=== PATIENT | female | born 1960 | race Caucasian/White ===

== ENCOUNTER 2019-05-02 17:32 | Emergency (ER) | payer BC ==
[~2019-05-02] VITALS: Ht 170.2 cm; Wt 85.0 kg
[~2019-05-02 17:32] MED LIST: CELE-193 PO; DULO60CA45 PO; ESTR-8 PO; HYDR-4353 PO
[2019-05-02 18:15] LABS: BASOPHILS % (AUTO) 0.4 % (0-1); EOSINOPHILS % (AUTO) 0.7 % (0-6); HEMATOCRIT 32.2 % (35.0-45.0); HEMOGLOBIN 11.1 g/dl (12.0-16.0); LYMPHOCYTES # (AUTO) 0.9 X10'3 (1.1-4.8); LYMPHOCYTES % (AUTO) 32.3 % (21-51); MEAN CORPUSCULAR HEMOGLOBIN 32.6 PG (27.0-31.0); MEAN CORPUSCULAR HGB CONC 34.6 g/dL (33.0-36.5); MEAN CORPUSCULAR VOLUME 94.1 FL (78-98); MEAN PLATELET VOLUME 7.6 FL (7.4-10.4); MONOCYTES # (AUTO) 0.2 X10'3 (0-0.9); MONOCYTES % (AUTO) 6.1 % (2-12); NEUTROPHILS # (AUTO) 1.7 X10'3 (1.8-7.7); NEUTROPHILS % (AUTO) 60.5 % (42-75); PLATELET COUNT 200 X10'3 (140-440); RED BLOOD COUNT 3.42 X10'6 (4.20-5.60); RED CELL DISTRIBUTION WIDTH 13.7 % (11.5-14.5); WHITE BLOOD COUNT 2.8 X10'3 (4.5-11.0)
--- NOTE | 2019-05-02 18:19 | NUR ---
PT REPORTS LAST CANCER TREATMENT WAS LAST FRIDAY
[2019-05-02 18:24] LABS: CLARITY,URINE SLIGHTLY CLOUDY (Clear); COLOR,URINE YELLOW (Yellow); GLUCOSE, URINE NEGATIVE (Neg); KETONES,URINE TRACE mg/dl (Neg); LEUKOCYTE ESTERASE ,URINE SMALL (Neg); NITRITES, URINE NEGATIVE (Neg); OCCULT BLOOD,URINE NEGATIVE (Neg); PROTEIN,URINE NEGATIVE (Neg); UROBILINOGEN,URINE 0.2 E.U/dL (0.2-1.0)
[2019-05-02 18:24] LABS: ALANINE AMINOTRANSFERASE 104 U/L (12-78); ALBUMIN 3.6 G/DL (3.4-5.0); ALKALINE PHOSPHATASE 143 IU/L (46-116); ANION GAP 10 (8-16); ASPARTATE AMINO TRANSFERASE 181 U/L (10-37); BLOOD UREA NITROGEN 23 MG/DL (7-18); BUN/CREATININE RATIO 12.4 (6.6-38.0); CALCIUM 8.7 MG/DL (8.5-10.1); CHLORIDE 104 MMOL/L (99-107); CREATININE 1.85 MG/DL (0.40-0.90); GLUCOSE 104 MG/DL (70-104); LIPASE 83 U/L (73-393); POTASSIUM 4.6 MMOL/L (3.5-5.1); SODIUM 136 MMOL/L (135-145); TOTAL CARBON DIOXIDE 22.4 MMOL/L (24-32); TOTAL PROTEIN 7.2 G/DL (6.4-8.2); eGFR 28 ML/MIN
[2019-05-02 18:26] LABS: UA COLLECTION TYPE CLN CATCH MIDSTREAM
--- NOTE | 2019-05-02 18:28 | NUR ---
PT HAS KNOWN SUPERFICIAL BLOOD CLOT ON UPPER RIGHT CHEST. PT CURRENTLY TAKES ELIQUIS DUE TO KNOWN CLOT.
[2019-05-02 18:43] LABS: BACTERIA,URINE 2+ /HPF (Neg); MUCUS STRANDS FEW /LPF (Neg); RBC,URINE NONE SEEN /HPF (0-2); SQUAMOUS EPITHELIAL CELL,UR MANY /LPF (FEW)
[2019-05-02 19:00] LABS: TOTAL CELLS COUNTED 100
[2019-05-02 19:01] LABS: PLATELET ESTIMATE NORMAL
[2019-05-02] MEDS ORDERED: fentaNYL/PF 50MCG/1 ML 2ML syringe IV ONE ×4 (19:30→22:35)
[2019-05-02] MEDS ORDERED: ondansetron/PF 4mg/2ml inj IV ONE ×2 (19:30→21:20)
[2019-05-02] MEDS ORDERED: piperacillin/tazo 3.375gm/50ml 50 ML IV ONE (21:20)
--- NOTE | 2019-05-03 00:50 | NUR ---
MD BEY PT SELF ADMINISTRATION OF AMBIEN 10 MG AND PT TRIAL MEDICATION: [facility] [phone] Study Drug [id number] 100 mg FOR IRB [id number] Tona Quesada MD
[2019-05-03 01:33] VITALS: BP 128/60
--- NOTE | 2019-05-03 05:12 | NUR ---
CALLED REPORT TO MARIBEL JORGE AT [facility] EMERGENCY ROOM. NO FUTHER QUESTIONS OR CONCERNS AT THIS TIME PER RN. ACCEPTING MD IS DR KUHN. CURRENTLY WAITING FOR TRANSPORTATION.
--- NOTE | 2019-05-03 06:29 | NUR ---
PT SLEEPING IN POC WITHOUT COMFORT, REMAINS WAITING TRANSPORT [facility].
[2019-05-03] MEDS ORDERED: ondansetron/PF 4mg/2ml inj IV ONE (09:40)
[2019-05-03] MEDS ORDERED: morphine 4 MG/ML inj SYRINge IV ONE (09:40)
--- NOTE | 2019-05-03 09:56 | NUR ---
PAIN AND NAUSEA MEDS REQUESTED AND GIVEN. RE[facility] CREW HERE TO TX PT TO [facility]. REPORT TO PILY, REACH 5.
== END 2019-05-14 10:42 | disposition short-term general hospital (02) ==
LOC: ER 17:33
DX: C56.9 Malignant neoplasm of unspecified ovary (principal); K81.0 Acute cholecystitis; R74.0 Nonspecific elevation of levels of transaminase and lactic acid dehydrogenase [LDH]; R11.2 Nausea with vomiting, unspecified; Z90.710 Acquired absence of both cervix and uterus; Z98.890 Other specified postprocedural states; Z79.2 Long term (current) use of antibiotics; Z79.899 Other long term (current) drug therapy
CPT/HCPCS: 36415; 74176; 80053; 81001; 83605; 83690; 85025; 93005; 96365; 96366; 96375; 96376; 99285; J2270; J2405; J2543; J3010

== ENCOUNTER 2019-09-07 13:08 | Emergency (ER) | payer MEDICARE, BC ==
[~2019-09-07] VITALS: Ht 170.2 cm; Wt 83.7 kg
[2019-09-07 13:46] LABS: BASOPHILS % (AUTO) 0.9 % (0-1); EOSINOPHILS # (AUTO) 0.1 X10'3 (0-0.9); EOSINOPHILS % (AUTO) 1.6 % (0-6); HEMATOCRIT 29.6 % (35.0-45.0); HEMOGLOBIN 9.8 g/dl (12.0-16.0); LYMPHOCYTES % (AUTO) 30.7 % (21-51); MEAN CORPUSCULAR HEMOGLOBIN 29.6 PG (27.0-31.0); MEAN CORPUSCULAR HGB CONC 33.2 g/dL (33.0-36.5); MEAN CORPUSCULAR VOLUME 89.2 FL (78-98); MEAN PLATELET VOLUME 7.5 FL (7.4-10.4); MONOCYTES # (AUTO) 0.3 X10'3 (0-0.9); NEUTROPHILS # (AUTO) 1.8 X10'3 (1.8-7.7); NEUTROPHILS % (AUTO) 57.8 % (42-75); PLATELET COUNT 210 X10'3 (140-440); RED BLOOD COUNT 3.32 X10'6 (4.20-5.60); RED CELL DISTRIBUTION WIDTH 18.2 % (11.5-14.5); WHITE BLOOD COUNT 3.2 X10'3 (4.5-11.0)
[2019-09-07 14:10] LABS: ALANINE AMINOTRANSFERASE 15 U/L (12-78); ALBUMIN 2.9 G/DL (3.4-5.0); ALBUMIN/GLOBULIN RATIO 0.8 (1.1-1.5); ALKALINE PHOSPHATASE 133 IU/L (46-116); AMYLASE 41 U/L (25-115); ANION GAP 8 (8-16); ASPARTATE AMINO TRANSFERASE 19 U/L (10-37); BILIRUBIN,TOTAL 0.4 MG/DL (0.1-1.0); BLOOD UREA NITROGEN 22 MG/DL (7-18); BUN/CREATININE RATIO 12.9 (6.6-38.0); CALCIUM 8.6 MG/DL (8.5-10.1); CHLORIDE 108 MMOL/L (99-107); GLUCOSE 155 MG/DL (70-104); LIPASE 74 U/L (73-393); POTASSIUM 4.3 MMOL/L (3.5-5.1); SODIUM 139 MMOL/L (135-145); TOTAL CARBON DIOXIDE 23.5 MMOL/L (24-32); TOTAL PROTEIN 6.4 G/DL (6.4-8.2); eGFR 31 ML/MIN
[2019-09-07] MEDS ORDERED: ondansetron 4mg rapidly disintigrating tab PO ONE (15:10)
[2019-09-07] MEDS ORDERED: morphine 4 MG/ML inj SYRINge IM ONE ×2 (15:10→16:10)
[2019-09-07 16:11] LABS: CLARITY,URINE SLIGHTLY CLOUDY (Clear); COLOR,URINE STRAW (Yellow); GLUCOSE, URINE NEGATIVE (Neg); KETONES,URINE NEGATIVE (Neg); LEUKOCYTE ESTERASE ,URINE SMALL (Neg); NITRITES, URINE NEGATIVE (Neg); OCCULT BLOOD,URINE LARGE (Neg); PH,URINE 5.5 (4.8-8.0); PROTEIN,URINE NEGATIVE (Neg); UROBILINOGEN,URINE 0.2 E.U/dL (0.2-1.0)
[2019-09-07 16:21] LABS: UA COLLECTION TYPE CLN CATCH MIDSTREAM
[2019-09-07 16:23] LABS: RBC,URINE 20-50 /HPF (0-2)
[2019-09-07 16:24] LABS: BACTERIA,URINE FEW /HPF (Neg); SQUAMOUS EPITHELIAL CELL,UR FEW /LPF (FEW); WBC,URINE 0-4 /HPF (0-4)
[2019-09-07] MEDS ORDERED: sucralfate 1gm/10ml UD suspension PO STA (17:19)
[2019-09-07] MEDS ORDERED: morphine 4 MG/ML inj SYRINge IV PRN (17:20)
[2019-09-07] MEDS ORDERED: LIDOcaine Viscous 15ml cup MM ONE (17:20)
[2019-09-07] MEDS ORDERED: ondansetron/PF 4mg/2ml inj IV ONE (17:20)
[2019-09-07] MEDS ORDERED: mag hydrox/Alum hydrox/simeth 30ml oral suspension PO ONE (17:20)
[2019-09-07] MEDS ORDERED: oxyCODONE SR 10mg (sust. release) tab PO ONE (18:00)
[2019-09-07] MEDS ORDERED: OXYC10TA47 PO (18:05)
[2019-09-07 18:26] VITALS: BP 143/62
== END 2019-09-07 18:28 | disposition home or self-care (01) ==
LOC: ER 13:08
DX: K80.20 Calculus of gallbladder without cholecystitis without obstruction (principal); C56.9 Malignant neoplasm of unspecified ovary; Z90.710 Acquired absence of both cervix and uterus; Z98.890 Other specified postprocedural states; Z79.2 Long term (current) use of antibiotics; Z79.899 Other long term (current) drug therapy
CPT/HCPCS: 36415; 76700; 80053; 81001; 82150; 83690; 85025; 87088; 96374; 96375; 99285; J2270; J2405

== ENCOUNTER 2020-04-12 07:43 | Emergency (ER) | payer BC, MEDICARE ==
[~2020-04-12] VITALS: Ht 170.2 cm; Wt 81.8 kg
[2020-04-12 08:57] LABS: BASOPHILS % (AUTO) 0.5 % (0-1); EOSINOPHILS # (AUTO) 0.1 X10'3 (0-0.9); EOSINOPHILS % (AUTO) 2.2 % (0-6); HEMATOCRIT 31.5 % (35.0-45.0); HEMOGLOBIN 10.4 g/dl (12.0-16.0); LYMPHOCYTES # (AUTO) 0.7 X10'3 (1.1-4.8); LYMPHOCYTES % (AUTO) 16.8 % (21-51); MEAN CORPUSCULAR HEMOGLOBIN 30.4 PG (27.0-31.0); MEAN CORPUSCULAR VOLUME 92.2 FL (78-98); MEAN PLATELET VOLUME 7.7 FL (7.4-10.4); MONOCYTES # (AUTO) 0.5 X10'3 (0-0.9); MONOCYTES % (AUTO) 13.1 % (2-12); NEUTROPHILS # (AUTO) 2.7 X10'3 (1.8-7.7); NEUTROPHILS % (AUTO) 67.4 % (42-75); PLATELET COUNT 275 X10'3 (140-440); RED BLOOD COUNT 3.42 X10'6 (4.20-5.60); WHITE BLOOD COUNT 4.1 X10'3 (4.5-11.0)
[2020-04-12 09:12] LABS: ALANINE AMINOTRANSFERASE 29 U/L (12-78); ALBUMIN 3.1 G/DL (3.4-5.0); ALBUMIN/GLOBULIN RATIO 0.9 (1.1-1.5); ALKALINE PHOSPHATASE 72 IU/L (46-116); ANION GAP 9 (8-16); ASPARTATE AMINO TRANSFERASE 27 U/L (10-37); BILIRUBIN,TOTAL 0.6 MG/DL (0.1-1.0); BLOOD UREA NITROGEN 17 MG/DL (7-18); BUN/CREATININE RATIO 15.5 (6.6-38.0); CALCIUM 8.8 MG/DL (8.5-10.1); CHLORIDE 111 MMOL/L (99-107); GLUCOSE 89 MG/DL (70-104); POTASSIUM 5.2 MMOL/L (3.5-5.1); SODIUM 142 MMOL/L (135-145); TOTAL CARBON DIOXIDE 22.5 MMOL/L (24-32); TOTAL PROTEIN 6.4 G/DL (6.4-8.2); eGFR 51 ML/MIN
[2020-04-12 09:34] VITALS: BP 171/73
[2020-04-12 09:35] LABS: ANISOCYTOSIS 3+
[2020-04-12 09:36] LABS: POLYCHROMASIA FEW; SCHISTOCYTES FEW
[2020-04-12 09:37] LABS: ELLIPTOCYTES FEW
[2020-04-12 09:38] LABS: PLATELET ESTIMATE NORMAL
[2020-04-12] MEDS ORDERED: FURO40TA4 PO (10:59)
== END 2020-04-12 11:12 | disposition home or self-care (01) ==
LOC: ER 07:44
DX: C56.9 Malignant neoplasm of unspecified ovary (principal); R06.02 Shortness of breath; R05 Cough; I12.9 Hypertensive chronic kidney disease with stage 1 through stage 4 chronic kidney disease, or unspecified chronic kidney disease; N18.9 Chronic kidney disease, unspecified; Z85.43 Personal history of malignant neoplasm of ovary; Z90.710 Acquired absence of both cervix and uterus; Z98.890 Other specified postprocedural states; Z79.899 Other long term (current) drug therapy
CPT/HCPCS: 36415; 71045; 80053; 83880; 85008; 85025; 93005; 93971; 99285

== ENCOUNTER 2022-10-19 13:26 | Emergency (ER) | payer BC, MEDICARE ==
[~2022-10-19] VITALS: Ht 170.2 cm; Wt 86.0 kg
[~2022-10-19 13:26] MED LIST changes: -DULO60CA45 PO; +DULO60CA60 PO; +FURO40TA4 PO
[2022-10-19 13:34] VITALS: BP 171/121
[2022-10-19 14:21] LABS: BASOPHILS % (AUTO) 0.7 % (0-1); EOSINOPHILS % (AUTO) 0.4 % (0-6); HEMATOCRIT 34.5 % (35.0-45.0); LYMPHOCYTES # (AUTO) 1.1 X10'3 (1.1-4.8); LYMPHOCYTES % (AUTO) 17.4 % (21-51); MEAN CORPUSCULAR HEMOGLOBIN 23.5 PG (27.0-31.0); MEAN CORPUSCULAR HGB CONC 31.9 g/dL (33.0-36.5); MEAN CORPUSCULAR VOLUME 73.5 FL (78-98); MEAN PLATELET VOLUME 6.7 FL (7.4-10.4); MONOCYTES # (AUTO) 0.6 X10'3 (0-0.9); MONOCYTES % (AUTO) 9.5 % (2-12); NEUTROPHILS # (AUTO) 4.7 X10'3 (1.8-7.7); PLATELET COUNT 284 X10'3 (140-440); RED CELL DISTRIBUTION WIDTH 21.8 % (11.5-14.5); WHITE BLOOD COUNT 6.5 X10'3 (4.5-11.0)
[2022-10-19 14:31] LABS: ALANINE AMINOTRANSFERASE 21 U/L (12-78); ALBUMIN 3.4 G/DL (3.4-5.0); ALBUMIN/GLOBULIN RATIO 0.8 (1.1-1.5); ALKALINE PHOSPHATASE 123 IU/L (46-116); ANION GAP 12 (8-16); ASPARTATE AMINO TRANSFERASE 22 U/L (10-37); BILIRUBIN,TOTAL 0.7 MG/DL (0.1-1.0); BLOOD UREA NITROGEN 14 MG/DL (7-18); BUN/CREATININE RATIO 10.4 (10.0-20.0); CALCIUM 9.4 MG/DL (8.5-10.1); CHLORIDE 100 MMOL/L (99-107); CREATININE 1.35 MG/DL (0.40-0.90); GLUCOSE 124 MG/DL (70-104); LIPASE 217 U/L (73-393); POTASSIUM 3.8 MMOL/L (3.5-5.1); SODIUM 134 MMOL/L (135-145); TOTAL PROTEIN 7.6 G/DL (6.4-8.2); eGFR 40 ML/MIN
[2022-10-19 14:41] LABS: ANISOCYTOSIS 3+; MICROCYTOSIS 1+; PLATELET ESTIMATE NORMAL
[2022-10-19 14:42] LABS: POIKILOCYTOSIS FEW
== END 2022-10-19 15:35 | disposition left against medical advice (07) ==
LOC: ER 13:27
DX: R10.9 Unspecified abdominal pain (principal); Z53.21 Procedure and treatment not carried out due to patient leaving prior to being seen by health care provider; Z79.899 Other long term (current) drug therapy
CPT/HCPCS: 36415; 80053; 82948; 83690; 85008; 85025; 93005; 99281